=== PATIENT | female | born 1940 | race Caucasian/White ===

== ENCOUNTER 2022-03-02 00:39 | Observation (INO) | payer MEDICARE, OTHER ==
[2022-03-02 01:49] LABS: #Basophils 0.1 10x3/uL (0.0-0.2); #Eosinphils 0.2 10x3/uL (0.0-0.5); #Monocytes 1.1 10x3/uL (0.0-1.1); #Neutrophils 8.1 10x3/uL (1.5-8.4); %Basophils 0.4 % (0.0-2.0); %Eosinophils 1.3 % (0.0-6.0); %Lymphocytes 17.9 % (18.0-47.0); %Monocytes 9.9 % (0.0-10.0); %Neutrophils 70.2 % (40.0-75.0); Hemoglobin 13.8 g/dL (12.0-15.5); Mean Corpuscular HGB CONC 32.8 g/dL (32.0-36.0); Mean Corpuscular Hemoglobin 30.9 pg (27.0-33.0); Mean Corpuscular Volume 94.2 fl (81.6-98.3); Mean Platelet Volume 8.9 fl (7.4-10.4); Platelet Count 336 10x3/uL (150-450); RBC Distribution Width 14.8 % (11.5-14.5); Red Blood Cell (RBC) Count 4.47 10x6/uL (3.90-5.03); White Blood Cell (WBC) Count 11.5 10x3/uL (3.5-10.5)
[2022-03-02] MEDS ORDERED: Aspirin Chewable 81 MG TAB ONE ×2 (01:51→08:51)
[2022-03-02] MEDS ORDERED: Nitroglycerin 2% Ointment 1 INCH/1 GM Packet ONE ×2 (01:52)
[2022-03-02] MEDS ORDERED: Nitroglycerin 0.4 MG TAB 1 EACH ONE (01:52)
[2022-03-02 02:05] LABS: ALT (SGPT) 55 U/L (8-55); AST (SGOT) 38 U/L (5-34); Albumin 4.1 g/dL (3.4-4.8); Alkaline Phosphatase 79 U/L (40-110); Anion Gap 17 mmol/L (10-20); BUN (Urea Nitrogen) 15 mg/dL (9.8-20.1); Bilirubin, Total 0.5 mg/dL (0.2-1.2); Calc. Creatinine Clearance 0 mL/min (70-130); Calcium 8.4 mg/dL (7.8-10.44); Carbon Dioxide 24 mmol/L (23-31); Chloride 103 mmol/L (98-107); Estimated GFR 72; Globulin 2.5 g/dL (2.4-3.5); Glucose 102 mg/dL (83-110); Lipase 33 U/L (8-78); Potassium 3.6 mmol/L (3.5-5.1); Protein, Total 6.6 g/dL (5.8-8.1); Sodium 140 mmol/L (136-145)
[2022-03-02] MEDS ORDERED: Ondansetron PF 4 MG/2 ML Vial IVP PRN (02:24)
[2022-03-02] MEDS ORDERED: Guaifenesin DM 100-10/5 ML UDCUP PO PRN (02:24)
[2022-03-02] MEDS ORDERED: Calcium Carbonate 500 MG ChewTAB PO PRN (02:24)
[2022-03-02] MEDS ORDERED: Acetaminophen 325 MG TAB PO PRN (02:24)
[2022-03-02] MEDS ORDERED: Nitroglycerin 0.4 MG TAB (25 Tab Bottle) SL PRN (02:25)
[2022-03-02] MEDS ORDERED: traMADol HCl 50 MG TAB PO PRN (02:26)
[2022-03-02] MEDS ORDERED: Loratadine 10 MG TAB PO PRN (02:28)
[2022-03-02] MEDS ORDERED: Levothyroxine Sodium 50 MCG TAB PO SCH (06:00)
[2022-03-02] MEDS ORDERED: Albuterol Sulfate 2.5 mg/3 ml Neb NEB PRN (07:48)
[2022-03-02] MEDS ORDERED: Polyvinyl Alcohol 1.4%/Povidone 0.6% Opth Drops EA EYE PRN (07:56)
[2022-03-02] MEDS ORDERED: Mometasone/Formoterol 60 PUFF AER INH SCH ×2 (08:00→18:30)
[2022-03-02] MEDS ORDERED: Enoxaparin Sodium 40 MG/0.4 ML SYRINGE ONE (08:49)
[2022-03-02] MEDS ORDERED: Gabapentin 300 MG CAP ONE (08:55)
[2022-03-02] MEDS ORDERED: Losartan 25 MG TAB ONE (08:56)
[2022-03-02] MEDS ORDERED: Multivitamin W/ Minerals 1 TAB ONE (08:58)
[2022-03-02] MEDS ORDERED: Gabapentin 300 MG CAP PO SCH (09:00)
[2022-03-02] MEDS ORDERED: Artificial Tear Sol 15 ML BOT EA EYE PRN (09:00)
[2022-03-02] MEDS ORDERED: Enoxaparin Sodium 40 MG/0.4 ML SYRINGE SC SCH (09:00)
[2022-03-02] MEDS ORDERED: predniSONE 5 MG TAB PO SCH (09:00)
[2022-03-02] MEDS ORDERED: Multivitamin W/ Minerals 1 TAB PO SCH (09:00)
[2022-03-02] MEDS ORDERED: DULoxetine 30 MG CAP PO SCH (09:00)
[2022-03-02] MEDS ORDERED: Aspirin 81 mg Enteric Coated Tablet PO SCH (09:00)
[2022-03-02] MEDS ORDERED: Cyanocobalamin (Vitamin B-12) 1,000 MCG TAB PO SCH (09:00)
[2022-03-02] MEDS ORDERED: Losartan 25 MG TAB PO SCH (09:00)
[2022-03-02] MEDS ORDERED: Leflunomide 10 mg Tablet PO SCH (09:00)
[2022-03-02] MEDS ORDERED: Mometasone/Formoterol 200/5 60 PUFF INH ONE (10:23)
[2022-03-02] MEDS ORDERED: Atorvastatin Calcium 40 MG TAB PO SCH (21:00)
[2022-03-02] MEDS ORDERED: Nortriptyline 10 MG CAP PO SCH (21:00)
== END 2022-03-02 14:56 | disposition home or self-care (01) ==
LOC: CSHERS 00:39 → CSHERHOLD 03:44
PROVIDERS: ADMIT Student in an Organized Health Care Education/Training Program; ATTEND Family Medicine
DX: R10.13 Epigastric pain (principal); R07.89 Other chest pain; I25.10 Atherosclerotic heart disease of native coronary artery without angina pectoris; I10 Essential (primary) hypertension; E78.5 Hyperlipidemia, unspecified; G89.29 Other chronic pain; M06.9 Rheumatoid arthritis, unspecified; K21.9 Gastro-esophageal reflux disease without esophagitis; E03.9 Hypothyroidism, unspecified; R73.03 Prediabetes; M19.90 Unspecified osteoarthritis, unspecified site; Z79.82 Long term (current) use of aspirin; Z79.899 Other long term (current) drug therapy; Z88.8 Allergy status to other drugs, medicaments and biological substances; Z95.5 Presence of coronary angioplasty implant and graft; Z98.890 Other specified postprocedural states
CPT/HCPCS: 71045; 80053; 83690; 83880; 84484 ×2; 85025; 93005; 94640; 96372; 99285; G0378; 36415; J1650; J7512

== ENCOUNTER 2022-04-17 12:21 | Outpatient (CLI) | payer MEDICARE | END 2022-04-17 12:22 | disposition home or self-care (01) | LOC: CSHRAD 12:21 | PROVIDERS: ATTEND Student in an Organized Health Care Education/Training Program | DX: M54.50 Low back pain, unspecified (principal); M51.36 Other intervertebral disc degeneration, lumbar region; M41.9 Scoliosis, unspecified; Z96.641 Presence of right artificial hip joint | CPT/HCPCS: 72100 ==

== ENCOUNTER 2022-05-15 11:38 | Outpatient (CLI) | payer MEDICARE | END 2022-05-15 11:39 | disposition home or self-care (01) | LOC: CSHCT 11:38 | PROVIDERS: ATTEND Nurse Practitioner Family | DX: M54.16 Radiculopathy, lumbar region (principal); M51.36 Other intervertebral disc degeneration, lumbar region | CPT/HCPCS: 72131 ==

== ENCOUNTER 2022-06-16 10:31 | Outpatient (CLI) | payer MEDICARE | END 2022-06-16 10:32 | disposition home or self-care (01) | LOC: CSHCP 10:31 | PROVIDERS: ATTEND Internal Medicine Critical Care Medicine | DX: J47.1 Bronchiectasis with (acute) exacerbation (principal); J98.8 Other specified respiratory disorders | CPT/HCPCS: 71250; 94060; 94726; 94729; 94760 ==

== ENCOUNTER 2023-01-25 20:32 | Emergency (ER) | payer MEDICARE ==
[2023-01-25] MEDS ORDERED: Acetaminophen 500 MG TAB ONE (20:56)
[2023-01-25 21:19] LABS: #Monocytes 1.1 10x3/uL (0.0-1.1); #Neutrophils 8.6 10x3/uL (1.5-8.4); %Basophils 0.4 % (0.0-2.0); %Eosinophils 0.2 % (0.0-6.0); %Monocytes 10.2 % (0.0-10.0); %Neutrophils 83.9 % (40.0-75.0); Hematocrit 33.8 % (34.9-44.5); Hemoglobin 10.8 g/dL (12.0-15.5); Mean Corpuscular Hemoglobin 29.5 pg (27.0-33.0); Mean Corpuscular Volume 92.3 fl (81.6-98.3); Mean Platelet Volume 9.5 fl (7.4-10.4); Platelet Count 300 10x3/uL (150-450); RBC Distribution Width 15.3 % (11.5-14.5); Red Blood Cell (RBC) Count 3.66 10x6/uL (3.90-5.03); White Blood Cell (WBC) Count 10.3 10x3/uL (3.5-10.5)
[2023-01-25] MEDS ORDERED: cefTRIAXone (ROCEPHIN) 1 GM VIAL ONE (21:25)
[2023-01-25 21:33] LABS: ALT (SGPT) 54 U/L (8-55); AST (SGOT) 90 U/L (5-34); Albumin 3.7 g/dL (3.4-4.8); Alkaline Phosphatase 111 U/L (40-110); Anion Gap 17 mmol/L (10-20); BUN (Urea Nitrogen) 17 mg/dL (9.8-20.1); Bilirubin, Total 0.4 mg/dL (0.2-1.2); Calc. Creatinine Clearance 0 mL/min (70-130); Calcium 8.6 mg/dL (7.8-10.44); Carbon Dioxide 21 mmol/L (23-31); Chloride 101 mmol/L (98-107); Estimated GFR 68; Globulin 3.2 g/dL (2.4-3.5); Glucose 196 mg/dL (83-110); Potassium 3.5 mmol/L (3.5-5.1); Protein, Total 6.9 g/dL (5.8-8.1); Sodium 135 mmol/L (136-145)
[2023-01-25 21:38] LABS: Bilirubin Neg (Negative); Blood, Urine 250 (Negative); Clarity Clear (Clear); Glucose, Urine (Dipstick) Normal (Negative); Ketone, Urine Negative (Negative); Leukocyte Negative (Negative); Nitrite Negative (Negative); Protein, Urine (Dipstick) 100 mg/dl (Neg-Trace); Urobilinogen Normal mg/dL (Less than 2)
[2023-01-25 21:52] LABS: SARS-CoV-2 NAA Rapid Test Not Detected (NotDetected)
[2023-01-25 23:04] LABS: CAUTI Indications for Culture Fever or rigors
[2023-01-25 23:05] LABS: Bacteria/HPF 2+ HPF (None Seen); Renal Epithelial 0-3 HPF (None Seen); Squamous Epithelial None Seen HPF (0-3)
[2023-01-25 23:06] LABS: Urine Culture Reflex No No
== END 2023-01-25 23:22 | disposition home or self-care (01) ==
LOC: CSHERS 20:32
DX: N39.0 Urinary tract infection, site not specified (principal); I25.10 Atherosclerotic heart disease of native coronary artery without angina pectoris; E03.9 Hypothyroidism, unspecified; K21.9 Gastro-esophageal reflux disease without esophagitis; E78.5 Hyperlipidemia, unspecified; I10 Essential (primary) hypertension; Z79.899 Other long term (current) drug therapy; Z79.82 Long term (current) use of aspirin
CPT/HCPCS: 0240U; 70450; 71045; 80053; 81001; 83605; 85025; 87040; 93005; 36415; 51701; 96361; 96365; J0696

== ENCOUNTER 2024-02-26 22:17 | Inpatient (IN) | payer MEDICARE ==
[2024-02-26] MEDS ORDERED: Ipratropium/Albuterol 3 ML NEB ONE (22:32)
[2024-02-26] MEDS ORDERED: methylPREDNISolone Sod Succ/PF 125 MG/2 ML VIAL ONE (22:34)
[2024-02-26 23:06] LABS: ALT (SGPT) 15 U/L (8-55); AST (SGOT) 21 U/L (5-34); Alkaline Phosphatase 79 U/L (40-110); Anion Gap 17 mmol/L (10-20); BUN (Urea Nitrogen) 13 mg/dL (9.8-20.1); Bilirubin, Total 0.3 mg/dL (0.2-1.2); Calc. Creatinine Clearance 0 mL/min (70-130); Calcium 9.5 mg/dL (7.8-10.44); Carbon Dioxide 26 mmol/L (23-31); Chloride 105 mmol/L (98-107); Estimated GFR 68; Globulin 2.9 g/dL (2.4-3.5); Glucose 129 mg/dL (83-110); Potassium 4.9 mmol/L (3.5-5.1); Protein, Total 5.9 g/dL (5.8-8.1); Sodium 143 mmol/L (136-145)
[2024-02-26 23:19] LABS: #Basophils 0.05 10x3/uL (0.0-0.2); #Eosinophils 0.62 10x3/uL (0.0-0.5); #Monocytes 1.49 10x3/uL (0.0-1.1); #Neutrophils 5.59 10x3/uL (1.5-8.4); %Basophils 0.5 % (0.0-2.0); %Eosinophils 5.7 % (0.0-6.0); %Lymphocytes 28.7 % (18.0-47.0); %Monocytes 13.7 % (0.0-10.0); %Neutrophils 51.2 % (40.0-75.0); Hematocrit 31.4 % (34.9-44.5); Mean Corpuscular HGB CONC 28.7 g/dL (32.0-36.0); Mean Corpuscular Hemoglobin 26.1 pg (27.0-33.0); Platelet Count 497 10x3/uL (150-450); RBC Distribution Width 15.1 % (11.5-14.5); Red Blood Cell (RBC) Count 3.45 10x6/uL (3.90-5.03); White Blood Cell (WBC) Count 10.9 10x3/uL (3.5-10.5)
[2024-02-26 23:22] LABS: Hypochromia SLIGHT = 6-15 cells (100X) (0-5/hpf); Microcytosis SLIGHT = 6-15 cells (100X) (0-5/hpf)
[2024-02-26 23:23] LABS: Platelet Adequacy Comment Appears Increased
[2024-02-27] MEDS ORDERED: Azithromycin 250 MG TAB ONE (00:15)
[2024-02-27] MEDS ORDERED: Ondansetron PF 4 MG/2 ML Vial IVP PRN (00:24)
[2024-02-27] MEDS ORDERED: Albuterol 2.5 MG (3 mL) NEB NEB PRN (00:27)
[2024-02-27] MEDS: cefTRIAXone\\ROCEPHIN 1 GM in Sodium Chloride 0.9% 100 ML IVPB SCH (03:02)
[2024-02-27 03:33] LABS: #Basophils 0.04 10x3/uL (0.0-0.2); #Eosinophils 0.01 10x3/uL (0.0-0.5); #Monocytes 0.17 10x3/uL (0.0-1.1); #Neutrophils 7.04 10x3/uL (1.5-8.4); %Basophils 0.5 % (0.0-2.0); %Eosinophils 0.1 % (0.0-6.0); %Lymphocytes 8.4 % (18.0-47.0); %Monocytes 2.1 % (0.0-10.0); %Neutrophils 88.6 % (40.0-75.0); Hematocrit 27.9 % (34.9-44.5); Hemoglobin 8.6 g/dL (12.0-15.5); Mean Corpuscular HGB CONC 30.8 g/dL (32.0-36.0); Mean Corpuscular Hemoglobin 27.4 pg (27.0-33.0); Mean Corpuscular Volume 88.9 fL (81.6-98.3); Platelet Count 460 10x3/uL (150-450); Red Blood Cell (RBC) Count 3.14 10x6/uL (3.90-5.03)
[2024-02-27] MEDS: Ipratropium/Albuterol 3 ML NEB NEB SCH (04:24)
[2024-02-27 04:35] LABS: Iron 10 ug/dL (50-170); Iron 9 ug/dL (50-170); Iron Binding Capacity, Total 421 mcg/dL (265-497); Iron Binding Capacity, Total 423 mcg/dL (265-497)
[2024-02-27 04:36] LABS: Anion Gap 17 mmol/L (10-20); BUN (Urea Nitrogen) 11 mg/dL (9.8-20.1); Calc. Creatinine Clearance 69 mL/min (70-130); Calcium 8.9 mg/dL (7.8-10.44); Carbon Dioxide 23 mmol/L (23-31); Chloride 105 mmol/L (98-107); Estimated GFR 75; Glucose 201 mg/dL (83-110); Potassium 3.8 mmol/L (3.5-5.1); Sodium 141 mmol/L (136-145)
[2024-02-27 06:11] VITALS: BMI 35.7
[2024-02-27] MEDS: predniSONE 20 MG TAB PO SCH (09:24)
[2024-02-27] MEDS: Furosemide 20 MG TAB PO SCH (09:24)
[2024-02-27] MEDS: Gabapentin 300 MG CAP PO SCH ×2 (15:16→20:43)
[2024-02-27] MEDS: Losartan 25 MG TAB PO SCH (20:44)
[2024-02-27] MEDS: Acetaminophen 325 MG TAB PO PRN (20:48)
[2024-02-27] MEDS: Nortriptyline HCl 25 MG CAP PO SCH (23:54)
[2024-02-28] MEDS: Azithromycin 500 MG in Sodium Chloride 0.9% 250 ML 250 ML IVPB SCH (00:30)
[2024-02-28 04:53] LABS: #Basophils 0.01 10x3/uL (0.0-0.2); #Eosinophils 0.01 10x3/uL (0.0-0.5); #Neutrophils 10.79 10x3/uL (1.5-8.4); %Basophils 0.1 % (0.0-2.0); %Eosinophils 0.1 % (0.0-6.0); %Monocytes 12.2 % (0.0-10.0); %Neutrophils 73.2 % (40.0-75.0); Hematocrit 27.3 % (34.9-44.5); Hemoglobin 8.2 g/dL (12.0-15.5); Mean Corpuscular Hemoglobin 26.5 pg (27.0-33.0); Mean Corpuscular Volume 88.3 fL (81.6-98.3); Mean Platelet Volume 8.9 fL (7.4-10.4); Platelet Count 490 10x3/uL (150-450); RBC Distribution Width 15.2 % (11.5-14.5); Red Blood Cell (RBC) Count 3.09 10x6/uL (3.90-5.03); White Blood Cell (WBC) Count 14.7 10x3/uL (3.5-10.5)
[2024-02-28 04:59] LABS: Anion Gap 15 mmol/L (10-20); BUN (Urea Nitrogen) 15 mg/dL (9.8-20.1); Calc. Creatinine Clearance 69 mL/min (70-130); Calcium 8.6 mg/dL (7.8-10.44); Carbon Dioxide 25 mmol/L (23-31); Chloride 108 mmol/L (98-107); Estimated GFR 75; Glucose 148 mg/dL (83-110); Potassium 3.6 mmol/L (3.5-5.1); Sodium 144 mmol/L (136-145)
[2024-02-28] MEDS: Levothyroxine Sodium 50 MCG TAB PO SCH (06:28)
[2024-02-28] MEDS: Gabapentin 300 MG CAP PO SCH (08:27)
[2024-02-28] MEDS: Enoxaparin 40 MG (0.4 mL) SYRINGE SC SCH (21:42)
[2024-02-28] MEDS: Nortriptyline HCl 25 MG CAP PO SCH (21:43)
[2024-02-29 04:26] LABS: Anion Gap 15 mmol/L (10-20); BUN (Urea Nitrogen) 16 mg/dL (9.8-20.1); Calc. Creatinine Clearance 76 mL/min (70-130); Calcium 8.6 mg/dL (7.8-10.44); Carbon Dioxide 24 mmol/L (23-31); Chloride 109 mmol/L (98-107); Estimated GFR 82; Glucose 113 mg/dL (83-110); Potassium 3.6 mmol/L (3.5-5.1); Sodium 144 mmol/L (136-145)
[2024-02-29 04:42] LABS: #Basophils 0.05 10x3/uL (0.0-0.2); #Eosinophils 0.04 10x3/uL (0.0-0.5); #Monocytes 1.49 10x3/uL (0.0-1.1); #Neutrophils 9.25 10x3/uL (1.5-8.4); %Basophils 0.4 % (0.0-2.0); %Eosinophils 0.3 % (0.0-6.0); %Lymphocytes 20.5 % (18.0-47.0); %Monocytes 10.9 % (0.0-10.0); %Neutrophils 67.6 % (40.0-75.0); Hematocrit 28.3 % (34.9-44.5); Hemoglobin 8.7 g/dL (12.0-15.5); Mean Corpuscular HGB CONC 30.7 g/dL (32.0-36.0); Mean Corpuscular Hemoglobin 27.5 pg (27.0-33.0); Mean Corpuscular Volume 89.6 fL (81.6-98.3); Mean Platelet Volume 9.1 fL (7.4-10.4); Platelet Count 502 10x3/uL (150-450); RBC Distribution Width 15.1 % (11.5-14.5); Red Blood Cell (RBC) Count 3.16 10x6/uL (3.90-5.03); White Blood Cell (WBC) Count 13.7 10x3/uL (3.5-10.5)
[2024-02-29] MEDS: Pantoprazole DR 40 MG TAB PO SCH (08:45)
[2024-02-29 12:17] VITALS: BP 152/76; TEMP 98.3
[2024-03-01] MEDS ORDERED: predniSONE 20 MG TAB PO SCH (08:00)
== END 2024-02-29 14:30 | disposition home or self-care (01) | DRG 189 ==
LOC: CSHERS 22:17 → CSHTELE 02-27 00:09 → OBSVTOIN 02-27 09:11
PROVIDERS: ADMIT Internal Medicine; ATTEND Internal Medicine
DX: J96.21 Acute and chronic respiratory failure with hypoxia (principal); J44.1 Chronic obstructive pulmonary disease with (acute) exacerbation; I10 Essential (primary) hypertension; E78.5 Hyperlipidemia, unspecified; I25.10 Atherosclerotic heart disease of native coronary artery without angina pectoris; E03.9 Hypothyroidism, unspecified; M19.90 Unspecified osteoarthritis, unspecified site; K21.9 Gastro-esophageal reflux disease without esophagitis; Z96.653 Presence of artificial knee joint, bilateral; Z82.49 Family history of ischemic heart disease and other diseases of the circulatory system; D64.9 Anemia, unspecified; I87.2 Venous insufficiency (chronic) (peripheral); Z79.82 Long term (current) use of aspirin; Z79.899 Other long term (current) drug therapy; Z88.8 Allergy status to other drugs, medicaments and biological substances
CPT/HCPCS: 36415; 71045; 80048; 80053; 83540; 83550; 83880; 84145; 85025; 86850; 86900; 86901; 87428; 93005; 94640; 94760; 94762; 96374; J0456; J0696; J1650; J2919; J7050; J7512; J7620

== ENCOUNTER 2024-10-12 12:30 | Outpatient (CLI) | payer MEDICARE | END 2024-10-12 12:31 | disposition home or self-care (01) | LOC: CSHCT 12:30 | PROVIDERS: ATTEND Specialist | DX: M51.16 Intervertebral disc disorders with radiculopathy, lumbar region (principal); S32.10XA Unspecified fracture of sacrum, initial encounter for closed fracture; M47.26 Other spondylosis with radiculopathy, lumbar region; M41.9 Scoliosis, unspecified; M43.16 Spondylolisthesis, lumbar region; Z96.643 Presence of artificial hip joint, bilateral; Z87.81 Personal history of (healed) traumatic fracture | CPT/HCPCS: 72131; 72192 ==